=== PATIENT | female | born 1985 | race Caucasian/White ===

== ENCOUNTER 2018-03-31 13:03 | Outpatient (CLI) | payer OTHER ==
[~2018-03-31 13:03] MED LIST: DOCU-131 PO; IBUP-1223 PO; OXYC-302 PO; PREN1TAB60 PO
[2018-03-31] MEDS ORDERED: birth control PO (13:23)
== END 2018-03-31 23:59 | disposition home or self-care (01) ==
LOC: STAR 13:03
PROVIDERS: ATTEND Surgery
DX: Z02.9 Encounter for administrative examinations, unspecified (principal)

== ENCOUNTER 2018-04-13 08:21 | Day surgery (SDC) | payer OTHER ==
[2018-03-31 13:24] VITALS: BP 125/84
[~2018-04-13] VITALS: Ht 162.6 cm; Wt 61.0 kg
[~2018-04-13 08:21] MED LIST changes: +BUPIVACAINE/PF-EPI 0.5% 1:200K ONE; +FENTANYL PF 250 MCG/5ML ONE; +MIDAZOLAM 1 MG/ML, 2ML ONE; +birth control PO
[2018-04-13] MEDS ORDERED: LACTATED RINGERS 1,000 ML IV SCH (08:40)
[2018-04-13] MEDS ORDERED: ONDANSETRON 2MG/ML, 2ML IVPush ONE (09:00)
[2018-04-13] MEDS ORDERED: ACETAMINOPHEN 500 MG TABLET PO ONE (09:00)
[2018-04-13] MEDS ORDERED: GABAPENTIN 300 MG CAPSULE PO ONE (09:00)
[2018-04-13] MEDS ORDERED: SCOPOLAMINE PATCH, 1.5MG PATCH.TD72 TD ONE (09:00)
[2018-04-13 09:02] LABS: HCG UR SG 1.022 (1.003-1.030)
[2018-04-13] MEDS ORDERED: SUGAMMADEX 200 MG/2 ML IVPush ONE (11:22)
[2018-04-13] MEDS ORDERED: hydrALAzine 20 MG/ML, 1ML IV PRN (12:00)
[2018-04-13] MEDS ORDERED: HYDROmorphone 1 MG/ML, 1ML IV PRN (12:00)
[2018-04-13] MEDS ORDERED: LABETALOL 5MG/ML, 20ML IV PRN (12:00)
[2018-04-13] MEDS ORDERED: PROMETHAZINE 25 MG/ML, 1ML IV PRN (12:00)
[2018-04-13] MEDS ORDERED: OXYcodone 5 MG/5 ML ORAL.SOL UDC PO PRN (12:00)
[2018-04-13] MEDS ORDERED: ONDANSETRON 2MG/ML, 2ML IVPush PRN (12:00)
[2018-04-13] MEDS ORDERED: FENTANYL PF 100 MCG/2ML IV PRN (12:00)
[2018-04-13] MEDS ORDERED: ALBUTEROL SULFATE 2.5 MG/3 ML NPPB PRN (12:00)
[2018-04-13] MEDS ORDERED: METOCLOPRAMIDE 5 MG/ML, 2ML IV PRN (12:00)
[2018-04-13] MEDS ORDERED: KETOROLAC 30 MG/1 ML IV PRN (12:00)
[2018-04-13] MEDS ORDERED: MEPERIDINE/PF 25MG/0.5ML IVPush PRN (12:00)
[2018-04-13] MEDS ORDERED: KETOROLAC 30 MG/1 ML ONE (12:06)
[2018-04-13] MEDS ORDERED: ROCURONIUM 10MG/ML,5ML ONE (15:22)
[2018-04-13] MEDS ORDERED: ONDANSETRON 2MG/ML, 2ML ONE (15:22)
[2018-04-13] MEDS ORDERED: DEXAMETHASONE 4 MG/ML, 1ML ONE (15:22)
[2018-04-13] MEDS ORDERED: PROPOFOL 10 MG/ML, 20ML ONE (15:22)
[2018-04-13] MEDS ORDERED: CEFAZOLIN 1,000 MG ONE (15:22)
== END 2018-04-13 14:35 | disposition home or self-care (01) ==
LOC: OUT 08:21
PROVIDERS: ATTEND Surgery
DX: K42.9 Umbilical hernia without obstruction or gangrene (principal); Z98.890 Other specified postprocedural states; Z72.89 Other problems related to lifestyle
CPT/HCPCS: 49585; 81025; J0690; J1100; J1885; J2250; J2405; J2704; J3010; J7120

== ENCOUNTER 2018-08-24 16:58 | Day surgery (SDC) | payer OTHER ==
[~2018-08-24] VITALS: Ht 162.6 cm; Wt 57.4 kg
[~2018-08-24 16:58] MED LIST changes: -BUPIVACAINE/PF-EPI 0.5% 1:200K ONE; -FENTANYL PF 250 MCG/5ML ONE; -MIDAZOLAM 1 MG/ML, 2ML ONE
[2018-08-24 18:23] VITALS: BP 132/91
[2018-08-24 18:47] LABS: HCG UR SG 1.025 (1.003-1.030)
[2018-08-24] MEDS ORDERED: FENTANYL PF 100 MCG/2ML ONE ×2 (20:48→22:22)
[2018-08-24] MEDS ORDERED: MIDAZOLAM 1 MG/ML, 2ML ONE (20:48)
[2018-08-24] MEDS ORDERED: KETOROLAC 30 MG/1 ML IV PRN (21:30)
[2018-08-24] MEDS ORDERED: HYDROmorphone 2 MG/ML, 1ML IVPush PRN (21:30)
[2018-08-24] MEDS ORDERED: DIAZEPAM 5 MG/ML, 2ML IVPush PRN (21:30)
[2018-08-24] MEDS ORDERED: LABETALOL 5MG/ML, 20ML IV PRN (21:30)
[2018-08-24] MEDS ORDERED: OXYcodone 5 MG/5 ML ORAL.SOL UDC PO PRN (21:30)
[2018-08-24] MEDS ORDERED: hydrALAzine 20 MG/ML, 1ML IV PRN (21:30)
[2018-08-24] MEDS ORDERED: FENTANYL PF 100 MCG/2ML IV PRN (21:30)
[2018-08-24] MEDS ORDERED: MEPERIDINE/PF 25MG/0.5ML IVPush PRN (21:30)
[2018-08-24] MEDS ORDERED: ACETAMINOPHEN 325 MG TABLET PO PRN (21:30)
[2018-08-24] MEDS ORDERED: PROMETHAZINE 25 MG/ML, 1ML IV PRN (21:30)
[2018-08-24] MEDS ORDERED: ALBUTEROL SULFATE 2.5 MG/3 ML NPPB PRN (21:30)
[2018-08-24] MEDS ORDERED: MEPERIDINE/PF 50 MG/ML ONE (21:46)
[2018-08-24] MEDS ORDERED: ONDANSETRON 2MG/ML, 2ML ONE (21:49)
[2018-08-24] MEDS ORDERED: OMNIPAQUE 350 MG/ML, 50 ML BOTTLE IV ONE ×2 (21:49→21:56)
[2018-08-24] MEDS ORDERED: DEXAMETHASONE 4 MG/ML, 1ML ONE (21:49)
[2018-08-24] MEDS ORDERED: PROPOFOL 10 MG/ML, 20ML ONE (21:49)
[2018-08-24] MEDS ORDERED: CEFAZOLIN 1,000 MG ONE (21:49)
[2018-08-24] MEDS ORDERED: OXYcodone 5 MG/5 ML ORAL.SOL UDC ONE (22:22)
[2018-08-24] MEDS ORDERED: HYDROmorphone 2 MG/ML, 1ML ONE (22:58)
== END 2018-08-24 23:46 | disposition home or self-care (01) ==
LOC: OR 16:58 → 4NOR 16:59 → OR 23:46
PROVIDERS: ATTEND Urology
DX: N20.1 Calculus of ureter (principal); Z72.89 Other problems related to lifestyle; Z79.899 Other long term (current) drug therapy; Z87.442 Personal history of urinary calculi; Z82.49 Family history of ischemic heart disease and other diseases of the circulatory system; Z80.3 Family history of malignant neoplasm of breast
CPT/HCPCS: 52356; 74420; 81025; C1758; C1769; C2617; C2625; J0690; J1100; J1170; J2175; J2250; J2405; J2704; J3010; Q9967; G0378